=== PATIENT | female | born 1945 | race Caucasian/White ===

== ENCOUNTER 2020-11-14 10:34 | Outpatient (CLI) | payer MEDICARE, OTHER, SELFPAY ==
--- NOTE | 2020-11-14 11:03 | XRR_ITS ---
PROCEDURE INFORMATION: Exam: XR Chest Exam date and time: 11/14/2020 11:04 AM Age: 75 years old Clinical indication: Dyspnea; Additional info: Dyspnea on exertion/vertigo x 2 years TECHNIQUE: Imaging protocol: XR of the chest. Views: 2 views. COMPARISON: CTA Chest-Pulmonary Emb [id number] 03/13/2019 10:37 AM FINDINGS: Lungs: There is a patchy hazy infiltrate in the left lung base along the periphery of the diaphragm. This may represent a pneumonia. The right lung is clear. Pleural spaces: Unremarkable. No pleural effusion. No pneumothorax. Heart/Mediastinum: Unremarkable. No cardiomegaly. Bones/joints: Unremarkable. XR/XR chest 2V* [id number] IMPRESSION: Small patchy hazy infiltrate in the left base along the diaphragm which may represent a small pneumonia.
[2020-11-14 11:46] LABS: Basophils % 0.8 %; Eosinophils # 0.3 10^3/uL (0.0-0.8); Hematocrit 43.5 % (37.0-47.0); Hemoglobin 14.1 g/dL (11.5-15.3); Lymphocytes # 1.3 10^3/uL (0.8-4.8); Lymphocytes % 25.9 %; Mean Corpuscular HGB Conc 32.4 g/dL (30.0-36.0); Mean Corpuscular Hemoglobin 30.9 pg (28.0-34.0); Mean Corpuscular Volume 95.4 fL (81-99); Mean Platelet Volume 10.3 fL (7.4-10.4); Monocytes # 0.5 10^3/uL (0.2-0.9); Monocytes % 9.4 %; Neutrophils # 2.94 10^3/uL (1.8-7.7); Neutrophils % 58.7 %; Nucleated Red Blood Cells % 0 %; Platelet Count 235 10^3/cmm (130-400); Red Blood Count 4.56 10^6/uL (4.1-5.3); Red Cell Distribution Width 13.2 % (12.1-15.1)
[2020-11-14 13:05] LABS: 25 Hydroxy Vitamin D 30 ng/mL (30-100); Alanine Aminotransferase 16 U/L (0-33); Alkaline Phosphatase 89 IU/L (35-105); Anion Gap 10.6 (5-19); Aspartate Amino Transferase 19 U/L (0-32); Blood Urea Nitrogen 14 mg/dL (8-23); Calcium 8.8 mg/dL (8.5-10.5); Carbon Dioxide 31 mmol/L (22-29); Chloride 102 mmol/L (98-107); Chol HDL Ratio 5.03 mg/dL (0.0-4.40); Cholesterol 181 mg/dL (0-200); Globulin 3.2 g/dL (1.3-4.6); Glucose 89 mg/dL (65-115); HDL Cholesterol 36 mg/dL (60-100); LDL Cholesterol Calculated 106 mg/dL (50-129); LDL HDL Ratio 2.94 RATIO (0.00-3.22); Osmolality Calculated 288 mOsm/kg (285-295); Potassium 4.6 mmol/L (3.5-5.1); Sodium 139 mmol/L (136-145); Thyroid Stimulating Hormone 3.66 uIU/mL (0.27-4.20); Total Bilirubin 0.2 mg/dL (0.15-1.2); Total Protein 7.2 g/dL (6.6-8.7); Triglycerides 193 mg/dL (0-150); Vitamin B12 760 pg/mL (232-1245)
[2020-11-14 13:59] LABS: Erythrocyte Sedimentation Rate 30 mm/hr (0-15)
[2020-11-14 14:55] LABS: Free T4 Free Thyroxine 1.19 ng/dL (0.82-1.77)
[2020-11-15 12:04] LABS: Lymes IGG WB <0.90 index
[2020-11-18 16:08] LABS: Rocky Mountain IgG NOT DETECTED; Rocky Mountain IgM NOT DETECTED
== END 2020-11-14 10:35 | disposition home or self-care (01) ==
PROVIDERS: PCP Nurse Practitioner Family; Visit Provider Nurse Practitioner Family
DX: E03.9 Hypothyroidism, unspecified (principal); I10 Essential (primary) hypertension; R42 Dizziness and giddiness; M79.10 Myalgia, unspecified site; M25.50 Pain in unspecified joint; R06.09 Other forms of dyspnea; R91.8 Other nonspecific abnormal finding of lung field
CPT/HCPCS: 36415; 71046; 80053; 80061; 82306; 82607; 84439; 84443; 85025; 85651; 86003; 86617; 86666; 86757

== ENCOUNTER 2020-11-24 07:57 | Outpatient (CLI) | payer MEDICARE, OTHER, SELFPAY ==
--- NOTE | 2020-11-24 08:15 | XR_ITS ---
WS: [id number] PROCEDURE: XR chest 2V* [id number] CLINICAL INFORMATION: DYSPNEA ON EXERTION, ABNORMAL CHEST X-RAY COMPARISON: November 14, 2020 FINDINGS: Heart: Normal cardiac silhouette. Lungs: Lungs are clear. No consolidation or pleural fluid. Previous described infiltrate in the left lower lobe has resolved Bones: Normal visualized bony structures. XR/XR chest 2V* [id number] IMPRESSION: No acute pulmonary infiltrates. Previously described left lower lobe infiltrate has resolved.
== END 2020-11-24 07:58 | disposition home or self-care (01) ==
PROVIDERS: PCP Nurse Practitioner Family; Visit Provider Nurse Practitioner Family
DX: R06.00 Dyspnea, unspecified (principal); R93.89 Abnormal findings on diagnostic imaging of other specified body structures
CPT/HCPCS: 71046

== ENCOUNTER 2021-11-15 11:12 | Outpatient (CLI) | payer MEDICARE, OTHER, SELFPAY ==
[2021-11-15 11:28] VITALS: BMI 17.2
--- NOTE | 2021-11-15 11:28 | ECG_ITS ---
[facility] Test Date: 2021-11-15 Pat Name: Henri Bar Department: Room: Gender: Female [employer]oles[employer] Account Manager: Lilian Garcia : 1945 Requested By: Diana Kim Order Number: [id number] Flaca MD: Dagoberto Sousa M.D. Interpretive Statements NAME OF STUDY: TREADMILL STRESS TEST INDICATION: D; Dyspnea, PROCEDURE: At the baseline, the patient's blood pressure was with a heart rate of. The baseline electrocardiogram showed normal sinus rhythm with normal ST-Ts. 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 The patient exercised for 5 minutes and 59 seconds on a standard Octavio protocol. Patient attained a maximum heart rate of 145 beats per minute(100% of the maximum predicted heart rate) with a blood pressure at the peak exercise of 150/98 mm Hg. The EKG at the peak exercise revealed. Patient did not have any chest pain or any significant cardiac arrhythmias with the exercise During the recovery phase, there were no new changes. Blood pressure at the end of the recovery phase was 123/74 mm Hg with a heart rate of 79 per minute. CONCLUSION: 1. Normal EKG response to treadmill exercise 2. No exercise-induced chest pain or cardiac arrhythmia 3. Impaired exercise tolerance, attained a maximum of 7.0 METs Electronically Signed On 11-17-2021 23:53:46 CDT by Dagoberto Sousa M.D. [email or web address]
[2021-11-15 12:07] VITALS: BP 123/74; PULSE 77
== END 2021-11-15 11:13 | disposition home or self-care (01) ==
LOC: CDL 11:13
PROVIDERS: PCP Nurse Practitioner Family; Visit Provider Nurse Practitioner Family
DX: R60.9 Edema, unspecified (principal); R06.09 Other forms of dyspnea
CPT/HCPCS: 93017

== ENCOUNTER → 2022-03-21 09:37 | Outpatient (BNVA) | payer MEDICARE, OTHER, SELFPAY | PROVIDERS: PCP Nurse Practitioner Family; Visit Provider Internal Medicine Rheumatology | DX: M19.90 Unspecified osteoarthritis, unspecified site (principal); Z79.899 Other long term (current) drug therapy; Z11.59 Encounter for screening for other viral diseases; Z11.1 Encounter for screening for respiratory tuberculosis; Z79.52 Long term (current) use of systemic steroids | CPT/HCPCS: 36415; 73130; 73630; 80076; 82306; 82565; 85025; 85651; 86038; 86140; 86431; 86480; 86704; 86803; 87340; 99204; 99214 ==